=== PATIENT | female | born 1975 | race Caucasian/White ===

== ENCOUNTER → 2016-11-08 | Outpatient (CLI) | payer BC ==
[2014-01-07 13:10] VITALS: BP 111/73
[~2016-11-08] MED LIST: ACET500T68 PO; BUPIVACAINE MPF 0.25% 10 ML VIAL. ONE; CHOL2000 PO; DICL100G7 TP; HYDR-2762 PO; IBUP200T77 PO; IBUPROFEN PO; MULT1TAB6 PO; NAPR500T8 PO; TIZA4TAB PO; VICODIN PO; VITAMIN D PO; methylPREDNISolone ACETATE 40 MG/ML VIAL. ONE; tumeric
--- NOTE | 2016-11-09 01:39 | PAIN ---
DATE OF SERVICE: 11/08/2016 PROGRESS NOTE FOR PAIN CLINIC. DIAGNOSES: 1. Bilateral wrist joint pain. 2. Lumbar radiculopathy with lumbar herniated disk and post-lumbar laminectomy syndrome. HISTORY OF PRESENT ILLNESS: The patient is a 41-year-old female who returns for followup status post previous caudal epidural steroid injections and carpometacarpal joint injections of the wrists. The patient reports she has been doing very well, but she has been ready to make a move to [place]. She has been packing things at home, getting ready for the move, it has been exacerbating her wrist pain significantly. The patient with significant pain in the bilateral wrists, mostly on the posterior aspect and also the medial aspect of the radial distribution of the carpometacarpal joints with very firm tenderness, worse by the end of the day, using her wrists and arms for more increased activity than she is normally tolerating. The patient reports it is a 2 in the morning, and an 8 by the end of the day. She is normally about a 6. It was a 2 this morning when asked as well. The patient reports no new motor or sensory deficits, no new bowel or bladder incontinence. Back is doing quite well with occasional pain in the lower extremities, but only with increased activity and this has not been persisting recently. The patient reports an aching, sharp, burning pain in the wrist bilaterally, worse again with use. The patient reports no new motor or sensory deficits, no new bowel or bladder incontinence or other complaints. PHYSICAL EXAMINATION: VITAL SIGNS: The patient's blood pressure 119/75, pulse 84, respirations are 20, temperature 97.8 degrees Fahrenheit, height is 5 feet 6 inches, weight is 121 pounds. GENERAL: The patient is awake, alert, oriented, appropriate, very pleasant demeanor. HEENT: Head shows normocephalic, atraumatic. Extraocular movements are intact and symmetrical. Oral cavity shows mucous membranes are moist and pink. Dentition is intact. NECK: Shows anterior throat supple without palpable lymphadenopathy noted. Swallow reflex is symmetrical. CHEST: Shows normal on inspection. Breath sounds clear to auscultation bilaterally. HEART: Shows S1 and S2 clear. ABDOMEN: Soft, nontender, nondistended. No palpable organomegaly. There is no rebound or guarding demonstrated. BACK: Shows spine grossly in the midline. Well-healed lumbar surgical scars, again noted some flattening of lumbar lordotic curvature, moderate tenderness with palpation, but only diffusely in the lower lumbar distribution, paraspinous distribution, without radiation. EXTREMITIES: The patient's extremities show, upper extremities normal and symmetrical without evidence of atrophy or hypertrophy. No edema. The patient's wrists shows significant tenderness with palpation over the posterior end aspect to the radial aspect of the metacarpocarpal joints bilaterally, moderate tenderness without radiation into the fingers or up into the forearm. Options were discussed with the patient. The patient's old chart was reviewed as was her current medication regimen updated. Current review of systems updated today as well. We will proceed with bilateral carpometacarpal joint injections. Risks were again discussed including, but not limited to bleeding, infection, possibility of intravascular injection sequelae, spread of local anesthetic and numbness, side effects of steroid medication and poor results regarding pain control. The patient understands and wishes to proceed. The patient will return to clinic in approximately 2 weeks for followup or as necessary, would like to call for her next appointment. The patient was counseled on activity levels as well as side effects to be aware of. DIAGNOSIS: Bilateral wrist joint pain with primary osteoarthritis of the carpometacarpal joints. PROCEDURE: Bilateral carpometacarpal joint injections under sterile prep and drape using local anesthetic. Medications injected are a total of 40 mg of Depo-Medrol plus total of 6 mL of 0.25% bupivacaine after negative aspiration at each injection. CONDITION AT DISCHARGE: Stable. The patient tolerated procedure well, had no complications. ANN MARIE MARSHALL MD DR: ANTON/justyna JOB#: [id number] / [id number]
== END | disposition home or self-care (01) ==
LOC: PNCL 07:40
PROVIDERS: ATTEND Anesthesiology
DX: M19.042 Primary osteoarthritis, left hand (principal); M19.041 Primary osteoarthritis, right hand; Z72.89 Other problems related to lifestyle
CPT/HCPCS: 20600; J1030; J3490

== ENCOUNTER → 2016-12-21 | Outpatient (CLI) | payer BC ==
[2014-01-07 13:10] VITALS: BP 111/73
[~2016-12-21] MED LIST changes: -BUPIVACAINE MPF 0.25% 10 ML VIAL. ONE; +DICL100G18 TP; -DICL100G7 TP; +IOHEXOL 180 MG/ML 10 ML VIAL. ONE; +methylPREDNISolone ACETATE 80 MG/ML VIAL. ONE
--- NOTE | 2016-12-22 05:38 | PAIN ---
DATE OF SERVICE: 12/21/2016 PROGRESS NOTE FOR PAIN CLINIC DIAGNOSES: 1. Bilateral wrist pain. 2. Lumbar radiculopathy with lumbar herniated disk and post-lumbar laminectomy syndrome. HISTORY OF PRESENT ILLNESS: The patient is a 41-year-old female who returns for followup status post both caudal epidural steroid injections and carpometacarpal joint injections. The patient was recently seen on 11/08/2016 with bilateral carpometacarpal joint injection, did fairly well with this. The patient reports approximately 80% improvement after the injections, but now has significant pain, increasing in the low back and right posterior gluteus, posterior thigh radiating to the right leg. The patient reports it is worse with activity, standing and walking, worse at 8 on a scale of 10, today as a 4 on a scale of 10, it is burning, aching, sharp pain, it is on and off depending on activity, worse with increased activity, also can be bothersome with sitting. The patient reports it awakens her from sleep at night as well. She lays on her right side. The patient reports no new motor or sensory deficits, no new bowel or bladder incontinence or other complaints. PHYSICAL EXAMINATION: VITAL SIGNS: Today, the patient's blood pressure is 102/64, pulse 74, respirations 18, temperature 98.1 degrees Fahrenheit. Height is 5 feet 6 inches, weight is 119 pounds. GENERAL: The patient is awake, alert, oriented, appropriate, very pleasant demeanor. HEENT: Shows normocephalic, atraumatic. Extraocular movements are intact, symmetrical. Oral cavity, mucous membranes are moist and pink. Dentition is intact. NECK: Shows anterior throat supple without palpable lymphadenopathy noted. Swallow reflex is symmetrical. CHEST: Shows normal on inspection. Breath sounds are clear to auscultation bilaterally. HEART: Shows S1 and S2 clear. ABDOMEN: Soft, nontender, nondistended. No palpable organomegaly. There is no rebound or guarding demonstrated. BACK: Shows spine grossly in midline, well-healed surgical scars noted in the lumbar distribution with some mild flattening of lumbar lordotic curvature. Lumbar paraspinous musculature shows symmetrical on inspection without atrophy, hypertrophy or asymmetry with palpation shows some moderate tenderness, more on the right than the left in the lower lumbar distribution. No tenderness over the sacrum or sacroiliac regions. The patient shows good rotation and motion of the lumbar spine, both laterally as well as extension and flexion without difficulty or pain reported. EXTREMITIES: Lower extremities show deep tendon reflexes at 2+ in the patellar, 1+ tendo-calcaneus tendons, are equal. Motor exam is strong with 5/5 dorsiflexion, extension, quadriceps and hamstring flexion. Options were discussed with the patient. The patient's old chart was reviewed as her current medication regimen updated. Current review of systems updated today as well. We will proceed with a caudal approach epidural steroid injection today with fluoroscopic guidance. Risks were again discussed including, but not limited to bleeding, infection, possibility of epidural hematoma, subsequent neurologic compromise, dural puncture, headaches, spinal cord and/or nerve damage, side effects of steroid medication and poor results regarding pain control. The patient understands and wishes to proceed. The patient will return to clinic in approximately 2 weeks for followup, was counseled on return appointment, activity level and side effects to be aware of. DIAGNOSIS: Lumbar radiculopathy with lumbar herniated disk and post-lumbar laminectomy syndrome. PROCEDURE: Caudal approach epidural steroid injection using C-arm fluoroscopic guidance under sterile prep and drape using local anesthetic. Medication injected is total of 120 mg Depo-Medrol plus 10 mL of preservative-free normal saline and 2 mL of Isovue contrast. CONDITION AT DISCHARGE: Stable. The patient tolerated procedure well, had no complications. ANN MARIE MARSHALL MD DR: ANTON/justyna JOB#: [id number] / [id number]
== END | disposition home or self-care (01) ==
LOC: PNCL 13:52
PROVIDERS: ATTEND Anesthesiology
DX: M51.16 Intervertebral disc disorders with radiculopathy, lumbar region (principal); M96.1 Postlaminectomy syndrome, not elsewhere classified; F17.200 Nicotine dependence, unspecified, uncomplicated; Z72.89 Other problems related to lifestyle; Z87.39 Personal history of other diseases of the musculoskeletal system and connective tissue; Z88.3 Allergy status to other anti-infective agents
CPT/HCPCS: 62323; J1030; J1040

== ENCOUNTER → 2017-07-07 | Outpatient (CLI) | payer BC | END | disposition home or self-care (01) | LOC: PNCL 08:42 | DX: M51.16 Intervertebral disc disorders with radiculopathy, lumbar region (principal); M96.1 Postlaminectomy syndrome, not elsewhere classified; M25.531 Pain in right wrist; M25.532 Pain in left wrist | CPT/HCPCS: 99212 ==

== ENCOUNTER → 2018-02-09 | Outpatient (CLI) | payer BC ==
[~2018-02-09] MED LIST changes: -ACET500T68 PO; +BUPIVACAINE MPF 0.25% 10 ML VIAL.; -CHOL2000 PO; -DICL100G18 TP; -HYDR-2762 PO; -IBUP200T77 PO; -IBUPROFEN PO; -IOHEXOL 180 MG/ML 10 ML VIAL. ONE; -MULT1TAB6 PO; -NAPR500T8 PO; -TIZA4TAB PO; -VICODIN PO; -VITAMIN D PO; +methylPREDNISolone ACETATE 40 MG/ML VIAL.; -methylPREDNISolone ACETATE 40 MG/ML VIAL. ONE; -methylPREDNISolone ACETATE 80 MG/ML VIAL. ONE; -tumeric
== END | disposition home or self-care (01) ==
LOC: PNCL 12:51
DX: M25.531 Pain in right wrist (principal); M25.532 Pain in left wrist; M51.16 Intervertebral disc disorders with radiculopathy, lumbar region; M96.1 Postlaminectomy syndrome, not elsewhere classified; Z88.1 Allergy status to other antibiotic agents; Z72.89 Other problems related to lifestyle; F17.200 Nicotine dependence, unspecified, uncomplicated; Z98.890 Other specified postprocedural states; Z79.899 Other long term (current) drug therapy
CPT/HCPCS: 20600; 20605; J1030; J3490

== ENCOUNTER → 2019-11-12 | Outpatient (CLI) | payer BC ==
[2014-01-07 13:10] VITALS: BP 111/73
[~2019-11-12] MED LIST changes: +ACET500T68 PO; -BUPIVACAINE MPF 0.25% 10 ML VIAL.; +CHOL2000 PO; +DICL100G54 TP; +DOXY100C2 PO; +HYDR-2765 PO; +IBUP200T77 PO; +IBUPROFEN PO; +IOHEXOL 180 MG/ML 10 ML VIAL. ONE; +MULT1TAB6 PO; +NAPR500T8 PO; +TIZA4TAB2 PO; +VICODIN PO; +VITAMIN D PO; -methylPREDNISolone ACETATE 40 MG/ML VIAL.; +methylPREDNISolone ACETATE 40 MG/ML VIAL. ONE; +methylPREDNISolone ACETATE 80 MG/ML VIAL. ONE; +tumeric
--- NOTE | 2019-11-12 11:53 | PAIN ---
DATE OF SERVICE: 11/12/2019 PROGRESS NOTE FOR PAIN CLINIC DIAGNOSES: 1. Bilateral wrist pain. 2. Lumbar radiculopathy with lumbar herniated disk and lumbar post-laminectomy syndrome. HISTORY OF PRESENT ILLNESS: The patient is a 44-year-old female who returns for followup status post caudal epidural steroid injections as well as carpometacarpal injections, most recently seen 02/2018. The patient did very well with this. She returns today reporting significant pain in the low back, bilateral lower extremities, posterior gluteus, posterior thighs with walking, standing, changing positions, sitting for prolonged periods. The patient reports the pain as very similar to that what it was several years ago when it was bothering her, aching pain described as tight, burning and constant in the low back itself as well as in the lower extremities, radiating with activity, mostly in the low back. The patient reports it is an 8 on a scale of 10 at its worst over the past week, 6 on average, 3 at its least and is a 6 today. The patient reports no new motor or sensory deficits. Initially, she is doing very well. We have not seen the patient for some time. The pain has been increasing building up. She is doing exercises and stretching and strengthening on her own, has been doing that for several months and then more aggressive about here in the last 2 months or so with the exercises, but the pain is still persistent. She has also had chiropractic treatments about once or twice a week here in the last 2 months as well, again with some significant pain still persistent. The patient reports it awakens her from sleep at night, but generally not more than once or twice. The patient reports no new motor or sensory deficits, no new bowel or bladder incontinence or other complaints. PHYSICAL EXAMINATION: VITAL SIGNS: The patient's blood pressure 102/67, pulse 77, respirations 18, temperature 98.2 degrees Fahrenheit, height is 5 feet 6 inches, weight is 128 pounds. GENERAL: The patient is awake, alert, oriented, appropriate, very pleasant demeanor. HEENT: Shows normocephalic, atraumatic. Extraocular movements are intact and symmetrical. Oral cavity: Mucous membranes moist and pink. Dentition is intact. NECK: Shows anterior throat supple without palpable lymphadenopathy noted. Swallow reflex symmetrical. CHEST: Shows normal on inspection. Breath sounds clear to auscultation bilaterally. HEART: Shows S1, S2 clear. No murmurs auscultated. ABDOMEN: Soft, nontender, nondistended. No palpable organomegaly is noted. No rebound or guarding demonstrated. BACK: Shows spine grossly in the midline. Normal appearing thoracic kyphosis, minor flattening of lumbar lordotic curvature. Lumbar well-healed surgical scarring noted in the midline. The patient's back shows good rotational motion both laterally as well as extension and flexion without significant increase in pain. EXTREMITIES: The patient's lower extremities show deep tendon reflexes at 2+ patellar, 1+ tendo-calcaneus tendons. Motor exam is approximately 5/5 with dorsiflexion, extension, quadriceps and hamstring flexion symmetrical. Peripheral pulses are 1+ posterior tibia. No peripheral edema is noted bilaterally. Options were discussed with the patient. The patient's old chart was reviewed as her current medication regimen updated. Current review of systems updated today as well. We will proceed with a caudal approach epidural steroid injection today with fluoroscopic guidance. Risks were again discussed including, but not limited to bleeding, infection, possibility of epidural hematoma, subsequent neurological compromise, dural puncture, headaches, spinal cord and/or nerve damage, side effects of steroid medication and poor results regarding pain control. The patient understands and wished to proceed. The patient will return to clinic in approximately 2 weeks for followup. She was counseled on return appointment, activity level and side effects to be aware of. DIAGNOSIS: Lumbar radiculopathy with lumbar herniated disk and lumbar post-laminectomy syndrome. PROCEDURE: Lumbar epidural steroid injection, caudal approach using C-arm fluoroscopic guidance under sterile prep and drape using local anesthetic. MEDICATION INJECTED: A total of 120 mg Depo-Medrol plus 10 mL of preservative-free normal saline and 2 mL of contrast. CONDITION AT DISCHARGE: Stable. The patient tolerated procedure well, had no complications. ANN MARIE MARSHALL MD DR: ANTON/justyna JOB#: [id number] / [id number]
== END ==
LOC: PNCL 10:31
PROVIDERS: ATTEND Anesthesiology
DX: M51.16 Intervertebral disc disorders with radiculopathy, lumbar region (principal); M96.1 Postlaminectomy syndrome, not elsewhere classified
CPT/HCPCS: 62323; J1030; J1040; Q9965